=== PATIENT | female | born 1995 | race Caucasian/White ===

== ENCOUNTER 2018-12-03 16:51 | Emergency (ER) | payer SELFPAY ==
[~2018-12-03] VITALS: Ht 160 cm; Wt 124.7 kg
--- NOTE | 2018-12-03 17:26 | ED Chest Pain ---
General Chief Complaint: Chest Pain Stated Complaint: CHEST PAINS History of Present Illness Date Seen by Provider: Dec 03, 2018 Time Seen by Provider: 17:08 Timing/Duration: 1-2 days Severity/Quality: mild Location: other (just inferior to left clavicle) Radiation: no radiation Activities at Onset: none Prior CP/Workup: no prior cardiac workup Modifying Factors: improves with coughing, improves with movement ASA po HAT MARKER: Yes NTG SL HAT MARKER: No Associated Symptoms: No abdominal pain, No back pain, No fever/chills, No nausea/vomiting, No shortness of breath, No syncope This is a 23-year-old female here with 2 days of left anterior nonradiating chest pain. Sore in character, worse with movement, also worse with breathing although there is no shortness of breath. There is a mild cough however this is not new and patient attributes it to smoking. No drug use. No family history of premature CAD or CVA. Nonexertional. Nonradiating. Moderate at worst. No control or hormonal therapy. No history of blood clots. No leg swelling. No recent travel. Allergies and Home Medications Patient Home Medication List Home Medication List Reviewed: Yes Review of Systems Review of Systems Constitutional: no symptoms reported EENTM: No Symptoms Reported Respiratory: See HPI Cardiovascular: See HPI Gastrointestinal: No Symptoms Reported Genitourinary: No Symptoms Reported Musculoskeletal: other (chest wall pain) Skin: no symptoms reported Psychiatric/Neurological: No Symptoms Reported Endocrine: No Symptoms Reported Hematologic/Lymphatic: No Symptoms Reported Past Gmovixz-Knzusv-Uspezz Hx Patient Social History Alcohol Use: Denies Use Recreational Drug Use: No Smoking Status: Current Everyday Smoker Type Used: Cigarettes 2nd Hand Smoke Exposure: No Recent Foreign Travel: No Contact w/Someone Who Travel: No Recent Hopitalizations: No Physical Abuse: No Sexual Abuse: No Mistreated: No Fear: No Seasonal Allergies Seasonal Allergies: No Past Medical History Surgeries: No Respiratory: Yes Asthma Cardiac: No Neurological: No Genitourinary: No Gastrointestinal: No Musculoskeletal: No Endocrine: No HEENT: No Cancer: No Psychosocial: Yes Anxiety Integumentary: No Blood Disorders: No Physical Exam Vital Signs Vital Signs - First Documented 12/03/18 17:12 Temp 98.4 Pulse 100 Resp 18 B/P (MAP) 117/73 (88) Pulse Ox 98 O2 Delivery Room Air Capillary Refill : Less Than 3 Seconds Height, Weight, BMI Height: '" Weight: lbs. oz. kg; BMI Method: General Appearance: No Apparent Distress HEENT: PERRL/EOMI, Normal ENT Inspection Neck: Supple Respiratory: Lungs Clear, Other (there is reproducible tenderness to the left anterior chest such the patient winces, no crepitation or other palpatory abnormality) Cardiovascular: Regular Rate, Rhythm, Normal Peripheral Pulses Gastrointestinal: Non Tender, Soft Extremity: Non Tender, Other (negative Homans sign) Neurologic/Psychiatric: Alert, Oriented x3 Skin: Warm/Dry Progress/Results/Core Measures Results/Orders Lab Results Laboratory Tests Test 12/03/18 17:36 Range/Units White Blood Count 11.5 H 4.3-11.0 10^3/uL Red Blood Count 5.15 4.35-5.85 10^6/uL Hemoglobin 15.8 11.5-16.0 G/DL Hematocrit 48 35-52 % Mean Corpuscular Volume 94 80-99 FL Mean Corpuscular Hemoglobin 31 25-34 PG Mean Corpuscular Hemoglobin Concent 33 32-36 G/DL Red Cell Distribution Width 13.0 10.0-14.5 % Platelet Count 256 130-400 10^3/uL Mean Platelet Volume 9.6 7.4-10.4 FL Sodium Level 136 135-145 MMOL/L Potassium Level 4.1 3.6-5.0 MMOL/L Chloride Level 98 98-107 MMOL/L Carbon Dioxide Level 23 21-32 MMOL/L Anion Gap 15 H 5-14 MMOL/L Blood Urea Nitrogen 8 7-18 MG/DL Creatinine 0.55 L 0.60-1.30 MG/DL Estimat Glomerular Filtration Rate > 60 BUN/Creatinine Ratio 15 Glucose Level 91 70-105 MG/DL Calcium Level 9.6 8.5-10.1 MG/DL Troponin T < 6 <=10 NG/L Serum Test, Qualitative NEGATIVE NEGATIVE My Orders Orders - ABIGAIL SANCHEZ DO Chest Pa/Lat (2 View) (12/03/18 17:10) Cbc No Diff (12/03/18 17:18) Basic Metabolic Panel (12/03/18 17:18) Hcg,Qualitative Serum (12/03/18 17:18) Vital Signs/I&O 12/03/18 12/03/18 17:12 17:12 Temp 98.4 Pulse 100 Resp 18 B/P (MAP) 117/73 (88) Pulse Ox 98 O2 Delivery Room Air Room Air Progress Progress Note : Progress Note This is a completely well-appearing 23-year-old female here with 2 days of intermittent left anterior chest pain, reproducible with palpation, no associated symptoms. Very low risk for ACS, dissection, mediastinitis. PERC negative. ECG is nonischemic. Await chest x-ray and basic labs. Will recommend supportive therapy, follow-up with PCP, return precautions discussed. Diagnostic Imaging Diagonstic Imaging: Xray Comments CHEST PA/LAT (2 VIEW) INDICATION: Chest pain. COMPARISON: None FINDINGS: Frontal and lateral views of the chest demonstrate normal heart size and pulmonary vascularity. The lungs are clear. There are no signs of infiltrate, pleural effusions or pneumothoraces. The visualized osseous structures show no acute abnormalities. IMPRESSION: 1. No acute process. No signs of infiltrates, effusions or pneumothoraces. Departure Impression Primary Impression: Chest pain Disposition: 01 HOME, SELF-CARE Condition: Stable Departure-Patient Inst. Referrals: PAMELLA STEWART (PCP/Family) Primary Care Physician Patient Instructions: Chest Pain That Is Not Caused by the Heart (DC) ABIGAIL SANCHEZ DO Dec 03, 2018 17:26
--- NOTE | 2018-12-03 17:38 | Diagnostic Imaging Report ---
INDICATION: Chest pain. COMPARISON: None FINDINGS: Frontal and lateral views of the chest demonstrate normal heart size and pulmonary vascularity. The lungs are clear. There are no signs of infiltrate, pleural effusions or pneumothoraces. The visualized osseous structures show no acute abnormalities. IMPRESSION: 1. No acute process. No signs of infiltrates, effusions or pneumothoraces. Dictated by: Dictated on workstation # [id number]
[2018-12-03 17:50] LABS: WHITE BLOOD COUNT 11.5 10^3/uL (4.3-11.0)
[2018-12-03 17:51] LABS: HEMOGLOBIN 15.8 G/DL (11.5-16.0); MEAN PLATELET VOLUME 9.6 FL (7.4-10.4)
[2018-12-03 18:10] LABS: BUN/CREATININE RATIO 15; CALCIUM 9.6 MG/DL (8.5-10.1); CARBON DIOXIDE 23 MMOL/L (21-32); CHLORIDE 98 MMOL/L (98-107); CREATININE SERUM 0.55 MG/DL (0.60-1.30); GFR ESTIMATED > 60; GLUCOSE 91 MG/DL (70-105); POTASSIUM 4.1 MMOL/L (3.6-5.0); SODIUM 136 MMOL/L (135-145)
[2018-12-03 18:21] VITALS: BP 126/78
== END 2018-12-03 18:21 | disposition home or self-care (01) ==
LOC: ER FS 16:54
DX: R07.89 Other chest pain (principal); J45.909 Unspecified asthma, uncomplicated; F41.9 Anxiety disorder, unspecified; F17.210 Nicotine dependence, cigarettes, uncomplicated
CPT/HCPCS: 36415; 71046; 80048; 84484; 84703; 85027